=== PATIENT | female | born 1965 | race Caucasian/White ===

== ENCOUNTER 2016-12-16 23:30 | Emergency (ER) | payer OTHER ==
[2016-12-17 02:42] LABS: HEMOGLOBIN 12.3 gm/dl (12.3-15.3); RED BLOOD COUNT 4.22 M/UL (4.00-5.10)
[2016-12-17 02:58] LABS: BUN/CREATININE RATIO 41 (0-10)
== END 2016-12-17 06:32 | disposition home or self-care (01) ==
LOC: ER1 23:30
PROVIDERS: Emergency Medicine
DX: R07.2 Precordial pain (principal); R91.1 Solitary pulmonary nodule; I10 Essential (primary) hypertension; E78.5 Hyperlipidemia, unspecified; Z87.891 Personal history of nicotine dependence; Z79.82 Long term (current) use of aspirin; Z79.899 Other long term (current) drug therapy; Z88.5 Allergy status to narcotic agent
CPT/HCPCS: 36415; 71010; 80053; 82550; 82553; 83874; 84484; 85025; 85379; 93005; 99285; J7050; Q9963

== ENCOUNTER → 2020-10-07 | Outpatient (CLI) | payer OTHER ==
[~2020-10-07] MED LIST: ASPIRIN EC81 MG PO; CETIRIZINE HCL10 MG PO; HYDRALAZINE HCL50 MG PO; LEVOTHYROXINE25 MCG PO; LISINOPRIL20 MG PO; LOPRESSOR 50 MG50 MG GT; MONTELUKAST SOD10 MG PO
== END ==
LOC: LAB 17:10
DX: E03.8 Other specified hypothyroidism (principal)
CPT/HCPCS: 84443

== ENCOUNTER → 2021-03-02 | Outpatient (CLI) | payer OTHER ==
[2021-03-02 15:42] LABS: HEMOGLOBIN 13.6 gm/dl (12.3-15.3); RED BLOOD COUNT 4.01 M/UL (4.00-5.10)
[2021-03-02 16:17] LABS: BUN/CREATININE RATIO 18 (0-10)
[2021-03-04 13:14] LABS: CHOLESTEROL, TOTAL 199 mg/dL (100-199); HDL SIZE 8.8 nm (>=9.2); HDL-C 47 mg/dL (>39); HDL-P (TOTAL) 29.3 umol/L (>=30.5); LARGE HDL-P 4.3 umol/L (>=4.8); LARGE VLDL-P 3.9 nmol/L (<=2.7); LDL SIZE 20.3 nm (>20.5); LDL SIZE 20.3 nm (>=20.8); LDL-C 123 mg/dL (0-99); LDL-P 1529 nmol/L (<1000); LP-IR SCORE 62 (<=45); SMALL LDL-P 923 nmol/L (<=527); TRIGLYCERIDES 162 mg/dL (0-149); VLDL SIZE 46.7 nm (<=46.6)
== END ==
LOC: LAB 15:07
PROVIDERS: Emergency Medicine
DX: I10 Essential (primary) hypertension (principal); R53.83 Other fatigue; E03.8 Other specified hypothyroidism
CPT/HCPCS: 36415; 80053; 80061; 83704; 84443; 85025

== ENCOUNTER → 2022-01-20 | Outpatient (CLI) | payer OTHER ==
[2022-01-20 15:48] LABS: BUN/CREATININE RATIO 34 (0-10)
[2022-01-22 11:14] LABS: CHOLESTEROL, TOTAL 192 mg/dL (100-199); HDL-C 41 mg/dL (>39); HDL-P (TOTAL) 29.1 umol/L (>=30.5); LARGE HDL-P 5.3 umol/L (>=4.8); LARGE VLDL-P 3.1 nmol/L (<=2.7); LDL SIZE 20.5 nm (>20.5); LDL SIZE 20.5 nm (>=20.8); LDL-C 121 mg/dL (0-99); LDL-P 1452 nmol/L (<1000); LP-IR SCORE 52 (<=45); SMALL LDL-P 639 nmol/L (<=527); TRIGLYCERIDES 167 mg/dL (0-149); VLDL SIZE 44.7 nm (<=46.6)
== END ==
LOC: LAB 09:52
PROVIDERS: Emergency Medicine
DX: I10 Essential (primary) hypertension (principal); E03.8 Other specified hypothyroidism; Z88.5 Allergy status to narcotic agent
CPT/HCPCS: 36415; 80053; 80061; 83704; 84443

== ENCOUNTER → 2022-02-02 | Outpatient (CLI) | payer OTHER | LOC: LAB 18:37 | DX: R60.0 Localized edema (principal); M79.662 Pain in left lower leg | CPT/HCPCS: 83880; 85379 ==